=== PATIENT | male | born 1985 | race Two or more races ===

== ENCOUNTER 2021-12-31 14:22 | Emergency (ER) | payer OTHER ==
[~2021-12-31] VITALS: Ht 170.2 cm; Wt 67.0 kg
[2021-12-31] MEDS ORDERED: IBUP-2029 MT (19:47)
[2021-12-31] MEDS ORDERED: IBUPROFEN 600MG TABLET PO ONE (20:00)
[2021-12-31 20:05] VITALS: BP 130/83
== END 2021-12-31 20:08 | disposition home or self-care (01) ==
LOC: ER 14:22
DX: U07.1 COVID-19 (principal)
CPT/HCPCS: 71045; 87070; 87426; 87430; 99284; C9803